=== PATIENT | female | born 1955 | race Caucasian/White ===

== ENCOUNTER 2018-01-06 10:37 | Inpatient (IN) | payer OTHER, BC ==
[2018-01-06] MEDS: ONDANSETRON 4 MG INJ IV (16:54)
[2018-01-06] MEDS: SOD CHLORIDE 0.9% 1,000 ML IV ×2 (16:54→20:50)
[2018-01-06] MEDS: morphine 4 MG/ML VIAL IV (16:54)
[2018-01-06 17:10] LABS: ADD MAN DIFF? NO
[2018-01-06 17:14] LABS: BASOPHILS % 0.4 % (0.0-2.0); HEMATOCRIT 40.7 % (37.0-47.0); HEMOGLOBIN 13.5 g/dl (12.0-16.0); LYMPHOCYTES # 1.6 10^3/ul (0.8-2.9); LYMPHOCYTES % 22.6 % (15.0-51.0); MEAN CORPUSCULAR HEMOGLOBIN 30.5 pg (29.0-33.0); MEAN CORPUSCULAR HGB CONC 33.2 g/dl (32.0-37.0); MEAN CORPUSCULAR VOLUME 91.9 fl (82.0-101.0); MEAN PLATELET VOLUME 10.9 fl (7.4-10.4); MONOCYTE # 0.3 10^3/ul (0.3-0.9); MONOCYTES % 3.7 % (0.0-11.0); NEUTROPHIL # 5.2 10^3/ul (1.6-7.5); NEUTROPHILS % 73.2 % (39.0-77.0); PLATELET COUNT 240 10^3/UL (140-415); RED BLOOD COUNT 4.43 10^6/ul (4.20-5.40)
[2018-01-06 17:24] LABS: ADD UMIC YES; UR ASCORBIC ACID 40 mg/dL (NEGATIVE); UR BILIRUBIN (Dip) NEGATIVE (NEGATIVE); UR BLOOD (Dip) NEGATIVE (NEGATIVE); UR CLARITY SLIGHTLY CLOUDY (CLEAR); UR COLOR YELLOW (YELLOW); UR GLUCOSE (Dip) NEGATIVE (NEGATIVE); UR KETONES (Dip) TRACE mg/dL (NEGATIVE); UR LEUKOCYTE ESTERASE (Dip) TRACE Leu/ul (NEGATIVE); UR MUCUS MANY /HPF (NONE SEEN); UR NITRITE (Dip) NEGATIVE (NEGATIVE); UR RBC 1 /HPF (0-5); UR SPECIFIC GRAVITY (Dip) 1.026 (1.003-1.030); UR TOTAL PROTEIN (Dip) NEGATIVE (NEGATIVE); UR UROBILINOGEN (Dip) NEGATIVE (NEGATIVE); UR WBC 3 /HPF (0-5)
[2018-01-06 17:33] LABS: ALANINE AMINOTRANSFERASE 33 IU/L (13-69); ALBUMIN 4.6 g/dl (3.3-4.9); ALBUMIN/GLOBULIN RATIO 1.24; ALKALINE PHOSPHATASE 88 IU/L (42-121); AMYLASE 124 U/L (11-123); ANION GAP 15 (8-16); ASPARTATE AMINO TRANSFERASE 37 IU/L (15-46); BILIRUBIN,INDIRECT 0.5 mg/dl (0-1.1); BILIRUBIN,TOTAL 0.5 mg/dl (0.2-1.3); BLOOD UREA NITROGEN 14 mg/dl (7-20); CALCIUM 10.1 mg/dl (8.4-10.2); CARBON DIOXIDE 29 mmol/L (21-31); CHLORIDE 102 mmol/L (97-110); CREATININE 0.64 mg/dl (0.44-1.00); GLUCOSE 98 mg/dl (70-220); LIPASE 60 U/L (23-300); POTASSIUM 4.7 mmol/L (3.5-5.1); SODIUM 141 mmol/L (135-144); TOTAL PROTEIN 8.3 g/dl (6.1-8.1)
[2018-01-06 17:40] LABS: INR 0.97
[2018-01-06 17:41] LABS: PARTIAL THROMBOPLASTIN TIME 32.6 Sec (25.0-35.0)
[2018-01-06 17:51] LABS: TROPONIN-I < 0.012 ng/ml (0.00-0.12)
[2018-01-06] MEDS: SOD CHLORIDE 0.9% 100 ML (18:50)
[2018-01-06] MEDS: IOHEXOL 300MG/ML 30 ML BTL (18:51)
[2018-01-06] MEDS ORDERED: LIDOCAINE/MYLANTA 40 ML BTL PO (20:04)
[2018-01-06] MEDS ORDERED: BELLADONNA/PHENOBARBITAL TAB PO (20:04)
[2018-01-06] MEDS: PIPER-TAZO 3.375 GM IV (PMX) 100 ML IVPB (20:52)
[2018-01-06] MEDS ORDERED: SUCRALFATE 1 GM TAB PO (21:00)
[2018-01-06] MEDS ORDERED: NACL 0.9% 3 ML SYG IV (21:00)
[2018-01-06] MEDS ORDERED: HYDROmorphONE 0.5 MG/0.5 ML SYG IV (21:00)
[2018-01-06] MEDS ORDERED: ACETAMINOPHEN 325 MG TAB PO (21:00)
[2018-01-06] MEDS ORDERED: ONDANSETRON 4 MG INJ IV (21:00)
[2018-01-06] MEDS: LISINOPRIL 20 MG TAB PO (22:34)
[2018-01-07] MEDS: PIPER-TAZO 3.375 GM IV (PMX) 100 ML IVPB ×2 (03:40→06:19)
[2018-01-07 05:07] LABS: ADD MAN DIFF? NO
[2018-01-07 05:14] LABS: BASOPHILS % 0.5 % (0.0-2.0); EOSINOPHILS % 0.4 % (0.0-7.0); HEMATOCRIT 35.3 % (37.0-47.0); LYMPHOCYTES # 1.4 10^3/ul (0.8-2.9); LYMPHOCYTES % 25.5 % (15.0-51.0); MEAN CORPUSCULAR HEMOGLOBIN 30.9 pg (29.0-33.0); MEAN PLATELET VOLUME 11.2 fl (7.4-10.4); MONOCYTE # 0.4 10^3/ul (0.3-0.9); MONOCYTES % 7.7 % (0.0-11.0); NEUTROPHIL # 3.7 10^3/ul (1.6-7.5); NEUTROPHILS % 65.7 % (39.0-77.0); PLATELET COUNT 185 10^3/UL (140-415); RED BLOOD COUNT 3.88 10^6/ul (4.20-5.40); RED CELL DISTRIBUTION WIDTH 13.2 % (11.5-14.5)
[2018-01-07 05:14] LABS: WHITE BLOOD COUNT 5.6 10^3/ul (4.8-10.8)
[2018-01-07 05:24] LABS: HEMOGLOBIN A1C 5.3 % (0-5.9)
[2018-01-07 05:42] LABS: ALANINE AMINOTRANSFERASE 37 IU/L (13-69); ALBUMIN 3.7 g/dl (3.3-4.9); ALBUMIN/GLOBULIN RATIO 1.27; ALKALINE PHOSPHATASE 68 IU/L (42-121); ANION GAP 11 (8-16); ASPARTATE AMINO TRANSFERASE 30 IU/L (15-46); BILIRUBIN,INDIRECT 0.9 mg/dl (0-1.1); BILIRUBIN,TOTAL 0.9 mg/dl (0.2-1.3); BLOOD UREA NITROGEN 13 mg/dl (7-20); CALCIUM 9.2 mg/dl (8.4-10.2); CARBON DIOXIDE 27 mmol/L (21-31); CHLORIDE 106 mmol/L (97-110); CHOL/HDL RATIO 2.1 RATIO; CHOLESTEROL 153 mg/dl (100-200); CREATININE 0.69 mg/dl (0.44-1.00); GLUCOSE 78 mg/dl (70-220); HDL CHOLESTEROL 72 mg/dl (35-98); LDL CHOLESTEROL,CALCULATED 73 mg/dl; MAGNESIUM 1.8 mg/dl (1.7-2.5); POTASSIUM 3.8 mmol/L (3.5-5.1); SODIUM 140 mmol/L (135-144); TOTAL PROTEIN 6.6 g/dl (6.1-8.1); TRIGLYCERIDES 42 mg/dl (0-149)
[2018-01-07] MEDS ORDERED: EPHEDrine SULFATE 50 MG/5 ML SYG (07:00)
[2018-01-07] MEDS ORDERED: ACETAMINOPHEN 1000 MG/100 ML IVPB (07:00)
[2018-01-07] MEDS ORDERED: LISINOPRIL 20 MG TAB PO (09:00)
[2018-01-07] MEDS: SOD CHLORIDE 0.9% 1,000 ML IV (09:02)
[2018-01-07] MEDS ORDERED: ROCURONIUM 50 MG INJ (11:22)
[2018-01-07] MEDS ORDERED: MIDAZOLAM 1 MG/ML 2 ML INJ (11:22)
[2018-01-07] MEDS ORDERED: FENTAnyl 50 MCG/ML VIAL (11:22)
[2018-01-07] MEDS ORDERED: PROPOFOL 20 ML (11:22)
[2018-01-07] MEDS ORDERED: ROPIVACAINE 0.2% 20 ML VIAL (11:22)
[2018-01-07] MEDS ORDERED: LABETALOL HCL 20MG INJ IV (12:00)
[2018-01-07] MEDS ORDERED: hydrALAzine 20 MG INJ IV (12:00)
[2018-01-07] MEDS ORDERED: FENTAnyl 50 MCG/ML VIAL IV ×3 (12:00)
[2018-01-07] MEDS ORDERED: METOCLOPRAMIDE 10 MG INJ IV (12:00)
[2018-01-07] MEDS ORDERED: MEPERIDINE 25 MG INJ IV (12:00)
[2018-01-07] MEDS ORDERED: DIPHENHYDRAMINE 50 MG INJ IV (12:00)
[2018-01-07] MEDS ORDERED: HYDROmorphONE (0.2 MG/ML) 10ML SYG IV ×3 (12:00)
[2018-01-07] MEDS ORDERED: EPHEDrine SULFATE 50 MG/5 ML SYG IV (12:00)
[2018-01-07] MEDS ORDERED: ONDANSETRON 4 MG INJ IV (12:00)
[2018-01-07] MEDS ORDERED: ONDANSETRON 4 MG INJ (12:02)
[2018-01-07] MEDS ORDERED: SUGAMMADEX SODIUM 200 MG/2 ML VIAL IV (12:02)
[2018-01-07] MEDS ORDERED: KETOROLAC 30 MG INJ (12:02)
[2018-01-07] MEDS ORDERED: DEXAMETHASONE 4 MG/ML 1 ML INJ (12:02)
[2018-01-07] MEDS ORDERED: METOCLOPRAMIDE 10 MG INJ (12:02)
[2018-01-07] MEDS ORDERED: LABETALOL HCL 20MG INJ (12:05)
[2018-01-07] MEDS ORDERED: NA PHOSPHATE/BIPHOS 133 ML ENEMA PR (12:30)
[2018-01-07] MEDS ORDERED: DOCUSATE SODIUM 100 MG CAP PO (12:30)
[2018-01-07] MEDS ORDERED: HYDROCODONE/APAP (5/325) TAB PO (12:30)
[2018-01-07] MEDS ORDERED: HYDROmorphONE 1 MG/ML SYG IV (12:30)
[2018-01-07] MEDS ORDERED: HYDROmorphONE 0.5 MG/0.5 ML SYG IV (12:30)
[2018-01-07] MEDS ORDERED: BISACODYL 10 MG SUPP PR (12:30)
[2018-01-07] MEDS: BUPIVACAINE 0.25%/EPI (SDV) 30 ML INJ INJ (12:44)
[2018-01-07] MEDS: ENOXAPARIN 40 MG/0.4 ML SYG SC (18:02)
[2018-01-07] MEDS: LISINOPRIL 20 MG TAB PO (20:47)
[2018-01-07] MEDS: FAMOTIDINE 20 MG TAB PO (20:47)
[2018-01-08 05:08] LABS: ADD MAN DIFF? NO
[2018-01-08 05:10] LABS: WHITE BLOOD COUNT 12.4 10^3/ul (4.8-10.8)
[2018-01-08 05:10] LABS: BASOPHILS % 0.2 % (0.0-2.0); HEMATOCRIT 36.1 % (37.0-47.0); HEMOGLOBIN 12.1 g/dl (12.0-16.0); LYMPHOCYTES # 1.8 10^3/ul (0.8-2.9); LYMPHOCYTES % 14.2 % (15.0-51.0); MEAN CORPUSCULAR HGB CONC 33.5 g/dl (32.0-37.0); MEAN CORPUSCULAR VOLUME 92.6 fl (82.0-101.0); MONOCYTE # 0.7 10^3/ul (0.3-0.9); MONOCYTES % 5.7 % (0.0-11.0); NEUTROPHIL # 9.8 10^3/ul (1.6-7.5); NEUTROPHILS % 79.5 % (39.0-77.0); PLATELET COUNT 213 10^3/UL (140-415); RED CELL DISTRIBUTION WIDTH 13.4 % (11.5-14.5)
[2018-01-08 05:47] LABS: ANION GAP 14 (8-16); BLOOD UREA NITROGEN 12 mg/dl (7-20); CALCIUM 9.3 mg/dl (8.4-10.2); CARBON DIOXIDE 30 mmol/L (21-31); CHLORIDE 104 mmol/L (97-110); CREATININE 0.62 mg/dl (0.44-1.00); GLUCOSE 142 mg/dl (70-220); MAGNESIUM 1.8 mg/dl (1.7-2.5); POTASSIUM 4.8 mmol/L (3.5-5.1); SODIUM 143 mmol/L (135-144)
[2018-01-08] MEDS: HYDROCODONE/APAP (5/325) TAB PO (07:50)
[2018-01-08] MEDS: ENOXAPARIN 40 MG/0.4 ML SYG SC (08:22)
== END 2018-01-08 12:33 | disposition home or self-care (01) | DRG 343 ==
LOC: E/R 10:37 → MS1 20:29
PROC: 0DTJ4ZZ Resection of Appendix, Percutaneous Endoscopic Approach (ICD-10-PCS; principal; 2018-01-07 11:22)
DX: K35.80 Unspecified acute appendicitis (principal); I10 Essential (primary) hypertension; K57.90 Diverticulosis of intestine, part unspecified, without perforation or abscess without bleeding
CPT/HCPCS: 36415; 74177; 80048; 80053; 80061; 81001; 82150; 83036; 83690; 83735; 84443; 84484; 85025; 85610; 85730; 87086; 88304; 93005; 96361; 96374; 96375; 99285-25

== ENCOUNTER 2018-01-13 15:23 | Outpatient (CLI) | payer OTHER | END 2018-01-13 17:00 | disposition home or self-care (01) | LOC: DCC 15:23 | DX: R10.9 Unspecified abdominal pain (principal); I10 Essential (primary) hypertension | CPT/HCPCS: G0463 ==

== ENCOUNTER 2018-01-28 11:06 | Outpatient (CLI) | payer OTHER | END 2018-01-28 15:31 | disposition home or self-care (01) | LOC: HPC 11:06 | DX: K35.80 Unspecified acute appendicitis (principal); I10 Essential (primary) hypertension | CPT/HCPCS: Z7500 ==